=== PATIENT | male | born 1990 | race Caucasian/White ===

== ENCOUNTER 2019-04-26 18:03 | Emergency (ER) | payer OTHER ==
[~2019-04-26] VITALS: Ht 175.3 cm; Wt 75.0 kg
[2019-04-26 19:14] VITALS: BP 142/90
== END 2019-04-26 19:14 | disposition home or self-care (01) ==
LOC: ER 18:03
DX: F10.129 Alcohol abuse with intoxication, unspecified (principal); Z02.89 Encounter for other administrative examinations; Y90.9 Presence of alcohol in blood, level not specified
CPT/HCPCS: 82962; 99283